=== PATIENT | male | born 1975 | race Caucasian/White ===

== ENCOUNTER 2021-06-18 16:15 | Inpatient (IN) ==
[2021-06-18] MEDS ORDERED: IOPAMIDOL 100 ML BOTTLE IV ONE (16:16)
[2021-06-18] MEDS ORDERED: 0.9 % SODIUM CHLORIDE 1,000 ML IV ONE (16:28)
--- NOTE | 2021-06-18 16:28 | Emergency Department Note ---
Abdominal Pain HPI General Chief Complaint: Abdominal Pain Stated Complaint: abdominal pain Time Seen by Provider: 06/18/21 16:27 Source: patient Mode of arrival: ambulatory Limitations: no limitations History of Present Illness HPI Narrative: Narrative: Patient is a 45-year-old male who presents to the emergency department today with report of severe aching pain to his abdomen. He reports this is located all 4 quadrants and started 2 days ago. Patient rates the pain 7 out of 10 on the 0-10 numerical pain scale. Patient reports past medical history of hepatitis C and was treated 7 or 8 months ago. He did not follow-up with GI after treatment. He indicates that his father and he started drin trace daily. He has been drinking 3 "4 Tionesta's" a day. 2 days ago he stopped drinking alcohol. He noticed that he started to have the abdominal pain, distention, feeling anxious, sweating, and nauseated. He denies any chest pain, shortness of breath, or difficulty breathing. He has not had any fevers or chills. He denies any cough. He has not had any vomiting, diarrhea, constipation, melena, or hematochezia. He has not had any headache or weakness. Related Data Home Medications Medication Instructions Recorded Confirmed No Known Home Meds 06/18/21 06/18/21 Allergies Allergy/AdvReac Type Severity Reaction Status Date / Time No Known Drug Allergies Allergy Unverified 06/18/21 16:18 Review of Systems ROS ROS Narrative: Narrative: All systems ED: reviewed and negative except as stated. [facility] Narrative Patient History Narrative: Narrative: Medical/Surgical/Family History All Active Problems (Updated 06/18/21 @ 19:48 by CLEOPATRA Diamond) Pancreatitis (Acute) Alcohol withdrawal syndrome (Acute) Social History Smoking Status: Current every day smoker Alcohol Intake Frequency: 2+ drinks per day Exam Narrative Narrative: Narrative: General Limitations: no limitations General appearance: Present alert and anxious Eye Eye: Present normal appearance and PERRL; Absent scleral icterus or nystagmus ENT ENT: Present mucous membranes dry Neck Neck: Present full ROM; Absent lymphadenopathy Chest Chest: Present normal inspection and symmetric chest wall rise Respiratory Respiratory: Present normal lung sounds bilaterally; Absent respiratory distress, rales/crackles, wheezes or accessory muscle use Cardiovascular Cardiovascular: Present regular rate and normal rhythm Adbominal Abdominal: Present soft, distention, tenderness (All 4 quadrants have mild to moderate tenderness with palpation.) and ascites; Absent mass, pulsatile mass or hernia Extremities Extremities: Present full ROM and normal capillary refill; Absent pedal edema, pretibial edema or calf tenderness Neurological Neurological: Present alert, oriented X3 and CN II-XII intact Psychiatric Psychiatric: Present anxious; Absent homicidal ideation or suicidal ideation Skin Skin: Present warm (WNL), diaphoretic and normal color Course Vital Signs Vital signs: Vital Signs Temperature 96.9 F L 06/18/21 16:19 Pulse Rate 122 H 06/18/21 16:19 Respiratory Rate 18 06/18/21 16:19 Blood Pressure 135/93 06/18/21 16:19 Pulse Oximetry (%) 96 06/18/21 16:19 Temperature 98.8 F 06/19/21 08:40 Pulse Rate 143 H 06/19/21 14:56 Respiratory Rate 28 H 06/19/21 14:01 Blood Pressure 125/96 06/19/21 14:01 Pulse Oximetry (%) 93 06/19/21 14:01 [facility] Narrative Medical decision making narrative: Narrative: 45-year-old male who presents to the emergency department today with abdominal distention and abdominal pain. He has history of hepatitis C with treatment and has been drinking alcohol daily for the last 7 to 8 months. He recently stopped drinking 2 days ago and is in alcohol withdrawal syndrome today. His CIWA score upon arrival was 15. Proceeded with IV lorazepam, IV fluids for hydration, CBC, CMP, lipase, troponin,urine dipstick, abdominal and pelvis CT scan with contrast. Patient's EKG today sinus tachycardia with rate of 120. No sign of acute coronary syndrome on EKG. Patient required IV Dilaudid for pain management today. His pain was starting to subside and controlled with IV pain medication. CT scan was read by Dr. Garcia today and he called me with report indicating that patient has acute uncomplicated pancreatitis. Lipase level today elevated at 610. Patient's bilirubin level elevated at 2.2, AST 136, ALT 97, alkaline phos 121, white blood count today 13.3. [id number] troponin today is negative. I discussed this case with supervising physician today, Dr. Conway. We will proceed with a right upper quadrant abdominal ultrasound for further evaluation for potential cholecystitis. The abdominal ultrasound does not show any sign of cholecystitis. No stones seen. Common bile duct is 4 mm. Patient responded well with IV lorazepam for alcohol withdrawal as well is receiving Dilaudid for pain management. Given that patient has alcohol withdrawal syndrome, acute pancreatitis requiring pain management with IV pain medication I feel that the patient would be best managed by being hospitalized. I was able to speak with Dr. Monroe today who is on for the hospitalist at [facility]. He agrees to accept patient for hospital admission. Lab Data Lab results reviewed: Yes I reviewed the patient's lab results. Result diagrams: 06/19/21 05:27 06/19/21 11:35 Labs: Lab Results 06/18/21 06/18/21 06/18/21 Range/Units 16:38 16:38 16:38 WBC 13.3 H (4.5-11.0) K/mcL RBC 5.99 (4.63-6.08) M/mcL Hgb 19.5 H (13.7-17.5) g/dL Hct 56.6 H (40.1-51.0) % MCV 94.5 (80.0-100.0) fL MCH 32.6 (26.0-34.0) pg MCHC 34.5 (31.0-36.0) g/dL RDW 12.5 (11.5-14.5) % Plt Count 367 (140-440) K/mcL MPV 9.1 (7.4-10.4) fL Neut % (Auto) 81.6 H (38.0-78.0) % Lymph % (Auto) 10.2 L (15.5-49.0) % [place] % (Auto) 7.1 (1.0-12.0) % Eos % (Auto) 0.2 (0.0-7.0) % Baso % (Auto) 0.9 (0.0-2.0) % Lymph # (Auto) 1.36 L (1.50-4.80) K/mcL [place] # (Auto) 0.95 H (0.10-0.90) K/mcL Eos # (Auto) 0.02 (0.00-0.70) K/mcL Baso # (Auto) 0.12 (0.00-0.30) K/mcL Absolute Neutrophils 10.87 H (1.80-8.00) K/mcL PT 12.9 (11.9-14.5) sec INR 0.9 (0.9-1.1) Sodium 134 (133-145) mmol/L Potassium 3.8 (3.3-5.1) mmol/L Chloride 94 L (96-108) mmol/L Carbon Dioxide 27 (22-30) mmol/L Anion Gap 13.0 (8.0-16.0) BUN 12 (6-20) mg/dL Creatinine 1.1 (0.7-1.2) mg/dL POC Creatinine (0.6-1.2) GFR Calculation 80 Glucose 186 H (70-105) mg/dL Calcium 9.4 (8.6-10.4) mg/dL Total Bilirubin 2.2 H (0.1-1.0) mg/dL AST 136 H (<40) U/L ALT 97 H (<40) U/L Alkaline Phosphatase 121 H (39-117) U/L C-Reactive Protein (0.03-0.80) mg/dL Total Protein 7.3 (5.9-8.4) gm/dL Albumin 3.8 (3.2-5.2) gm/dL Globulin 3.5 (2.2-3.7) gm/dL Albumin/Globulin Ratio 1.1 (1.0-2.3) Lipase 610 H (7-60) U/L POC Troponin I 06/18/21 06/18/21 06/18/21 Range/Units 16:38 17:17 17:19 WBC (4.5-11.0) K/mcL RBC (4.63-6.08) M/mcL Hgb (13.7-17.5) g/dL Hct (40.1-51.0) % MCV (80.0-100.0) fL MCH (26.0-34.0) pg MCHC (31.0-36.0) g/dL RDW (11.5-14.5) % Plt Count (140-440) K/mcL MPV (7.4-10.4) fL Neut % (Auto) (38.0-78.0) % Lymph % (Auto) (15.5-49.0) % [place] % (Auto) (1.0-12.0) % Eos % (Auto) (0.0-7.0) % Baso % (Auto) (0.0-2.0) % Lymph # (Auto) (1.50-4.80) K/mcL [place] # (Auto) (0.10-0.90) K/mcL Eos # (Auto) (0.00-0.70) K/mcL Baso # (Auto) (0.00-0.30) K/mcL Absolute Neutrophils (1.80-8.00) K/mcL PT (11.9-14.5) sec INR (0.9-1.1) Sodium (133-145) mmol/L Potassium (3.3-5.1) mmol/L Chloride (96-108) mmol/L Carbon Dioxide (22-30) mmol/L Anion Gap (8.0-16.0) BUN (6-20) mg/dL Creatinine (0.7-1.2) mg/dL POC Creatinine 1.2 (0.6-1.2) GFR Calculation Glucose (70-105) mg/dL Calcium (8.6-10.4) mg/dL Total Bilirubin (0.1-1.0) mg/dL AST (<40) U/L ALT (<40) U/L Alkaline Phosphatase (39-117) U/L C-Reactive Protein 0.50 (0.03-0.80) mg/dL Total Protein (5.9-8.4) gm/dL Albumin (3.2-5.2) gm/dL Globulin (2.2-3.7) gm/dL Albumin/Globulin Ratio (1.0-2.3) Lipase (7-60) U/L POC Troponin I 0 ED POC Tests ED POC Tests: MACIE - SARS Antigen Negative EKG Data EKG #1: EKG attestation: Yes I reviewed and interpreted this EKG. and Yes There are no EKG findings of acute coronary syndrome EKG shows normal: sinus rhythm Rate: tachycardia Discharge Plan Patient/Caregiver Discharge Instructions Pt seen by POWER SCREWDRIVER OPERATOR/PA only: No Clinical Impression: Pancreatitis, Alcohol withdrawal syndrome Patient Disposition: Xfer As Inpt ([facility]) Discharge Date/Time: 06/18/21 20:39
[2021-06-18] MEDS ORDERED: LORazepam 2 MG/ML VIAL IV ONE (16:38)
[2021-06-18] MEDS: HYDROmorphone 0.5 MG/0.5 ML SYRINGE IV PRN ×4 (16:50→23:26)
[2021-06-18 17:18] LABS: Basophils # (Auto) 0.12 K/mcL (0.00-0.30); Basophils % (Auto) 0.9 % (0.0-2.0); Eosinophils # (Auto) 0.02 K/mcL (0.00-0.70); Eosinophils % (Auto) 0.2 % (0.0-7.0); Hematocrit 56.6 % (40.1-51.0); Hemoglobin 19.5 g/dL (13.7-17.5); Lymphocytes # (Auto) 1.36 K/mcL (1.50-4.80); Lymphocytes % (Auto) 10.2 % (15.5-49.0); Mean Cell Volume 94.5 fL (80.0-100.0); Mean Corpuscular HGB Conc 34.5 g/dL (31.0-36.0); Mean Platelet Volume 9.1 fL (7.4-10.4); Monocytes # (Auto) 0.95 K/mcL (0.10-0.90); Monocytes % (Auto) 7.1 % (1.0-12.0); Neutrophils % (Auto) 81.6 % (38.0-78.0); Platelet Count 367 K/mcL (140-440); RBC 5.99 M/mcL (4.63-6.08); Red Cell Distribution Width 12.5 % (11.5-14.5); WBC 13.3 K/mcL (4.5-11.0)
[2021-06-18 17:30] LABS: ALT/SGPT 97 U/L (<40); AST/SGOT 136 U/L (<40); Albumin 3.8 gm/dL (3.2-5.2); Albumin/Globulin Ratio 1.1 (1.0-2.3); Alkaline Phosphatase 121 U/L (39-117); Bilirubin,Total 2.2 mg/dL (0.1-1.0); Blood Urea Nitrogen 12 mg/dL (6-20); Calcium 9.4 mg/dL (8.6-10.4); Carbon Dioxide 27 mmol/L (22-30); Chloride 94 mmol/L (96-108); Globulin 3.5 gm/dL (2.2-3.7); Glomerular Filtration Rate 80; Glucose 186 mg/dL (70-105)
[2021-06-18] MEDS ORDERED: LACTATED RINGERS 1,000 ML IV ONE (19:51)
--- NOTE | 2021-06-18 19:58 | Internal Med History&Physical ---
HPI History of Present Illness Patient information: Note initiated : 06/18/21 at 7:57 pm Service Date, if different from initiated Date: [] Patient: Deanne Alvarez 45 y/o M admitted on for abdominal pain. Chief Complaint: [] History of present illness: Mr. Alvarez is a 45 year old male with a history of alcohol use disorder, tobacco use disorder, treated chronic hepatitis C who presented to the emergency department with abdominal pain and distention and was found to have acute pancreatitis. CT abdomen pelvis as well as abdominal ultrasound were done in the ED, the ED provider received report from radiology that there was evidence of acute uncomplicated pancreatitis, there were no gallstones seen on imaging the common bile duct was 4 mm. The likely reason for the patient's acute pancreatitis is alcohol. In addition, the patient was experiencing alcohol withdrawal in the emergency department and received Ativan IV. Hospital medicine was consulted for admission. We discussed the plan of care in detail as well as CODE STATUS. All questions answered to best my ability. The patient wishes to be full code. Review of system Constitutional: no fever, fatigue, or weight loss Eyes: no vision changes or pain Cardiovascular: no chest pain, no palpitations Respiratory: no cough or dyspnea Gastrointestinal: Positive for abdominal pain and distention. Genitourinary: no dysuria or difficulty voiding Musculoskeletal: no arthralgia or myalgia Integumentary: no skin lesion or wound Neurological: no focal weakness or numbness Psychiatric: Positive for depression. Physical exam Head: Atraumatic, normal inspection. Eyes: normal appearance, no scleral icterus. Neck: full ROM Respiratory: no respiratory distress. Cardiovascular: Regular tachycardia, S1, S2. GI/Abdominal: Abdominal distended, diffuse abdominal tenderness to palpation. Neurological: CN II-XII intact, intact motor, intact sensation. Psychiatric: Appears anxious. Skin: warm, normal color PFSH PFSH All Active Problems (Updated 06/18/21 @ 19:48 by CLEOPATRA Diamond) Pancreatitis (Acute) Alcohol withdrawal syndrome (Acute) Social History alcohol intake frequency: 2+ drinks per day MEDS/ALLERGIES Home Medications and Allergies Home Medications Medication Instructions Recorded Confirmed Type No Known Home Meds 06/18/21 06/18/21 History Allergies Allergy/AdvReac Type Severity Reaction Status Date / Time No Known Drug Allergies Allergy Unverified 04/23/22 16:18 EXAM Constitutional Vitals: Temp Pulse Resp BP Pulse Ox 96.9 F L 118 H 16 170/118 97 06/18/21 16:19 06/18/21 19:00 06/18/21 18:46 06/18/21 19:31 06/18/21 19:00 DATA Data Completed and Pending Labs: Labs from last 24 hours 06/18/21 06/18/21 06/18/21 17:19 17:17 16:38 WBC RBC Hgb Hct MCV MCH MCHC RDW Plt Count MPV Neut % (Auto) Lymph % (Auto) [place] % (Auto) Eos % (Auto) Baso % (Auto) Lymph # (Auto) [place] # (Auto) Eos # (Auto) Baso # (Auto) Absolute Neutrophils PT INR Sodium Potassium Chloride Carbon Dioxide Anion Gap BUN Creatinine POC Creatinine 1.2 GFR Calculation Glucose Calcium Total Bilirubin AST ALT Alkaline Phosphatase C-Reactive Protein Pending Total Protein Albumin Globulin Albumin/Globulin Ratio Lipase POC Troponin I 0 06/18/21 06/18/21 06/18/21 16:38 16:38 16:38 WBC 13.3 H RBC 5.99 Hgb 19.5 H Hct 56.6 H MCV 94.5 MCH 32.6 MCHC 34.5 RDW 12.5 Plt Count 367 MPV 9.1 Neut % (Auto) 81.6 H Lymph % (Auto) 10.2 L [place] % (Auto) 7.1 Eos % (Auto) 0.2 Baso % (Auto) 0.9 Lymph # (Auto) 1.36 L [place] # (Auto) 0.95 H Eos # (Auto) 0.02 Baso # (Auto) 0.12 Absolute Neutrophils 10.87 H PT Pending INR Pending Sodium 134 Potassium 3.8 Chloride 94 L Carbon Dioxide 27 Anion Gap 13.0 BUN 12 Creatinine 1.1 POC Creatinine GFR Calculation 80 Glucose 186 H Calcium 9.4 Total Bilirubin 2.2 H AST 136 H ALT 97 H Alkaline Phosphatase 121 H C-Reactive Protein Total Protein 7.3 Albumin 3.8 Globulin 3.5 Albumin/Globulin Ratio 1.1 Lipase 610 H POC Troponin I A/P Narrative A/P Narrative: Assessment: 45 year old male with a history of alcohol use disorder and chronic hepatitis C (reportedly treated) admitted for acute pancreatitis secondary to alcohol and alcohol withdrawal. #Acute pancreatitis likely secondary to alcohol #Alcohol withdrawal #Elevated hematocrit secondary to hemoconcentration #Leukocytosis likely due to stress #Alcoholic hepatitis #Obesity BMI 35 #Alcohol use disorder #Tobacco use disorder #History of chronic hepatitis C (reportedly treated) Plan -Aggressive volume resuscitation with IV LR, monitor volume status. -Analgesics as needed with Tylenol, Toradol, Oxycodone, Dilaudid IV. -Check INR to calculate Maddrey's Discriminant Function score. -Check CRP. -Follow CBC and inpatient panel. -Replace electrolytes as needed. -Follow up pending abdominal ultrasound and CT scan report. -Urine drug screen. -CIWA protocol with Ativan IV prn. -Vitamin supplementation. -Seizure precautions. -Labetalol or hydralazine IV as needed for SBP greater than 90. -Clear liquid diet, advance as tolerated. -Monitor nutritional status, if no oral intake after 48-72 hour of hospitalization consider starting tube feeding. -DVT prophylaxis: Lovenox -Code status: Full -Disposition: home when stable, consider referral to addition medicine. Time Spent With Patient Time: Total time spent is greater than 50% in coordination of care (as documented) at patient's floor/unit and/or counseling patient:
[2021-06-18 20:19] LABS: INR 0.9 (0.9-1.1); Prothrombin Time 12.9 sec (11.9-14.5)
[2021-06-18] MEDS ORDERED: ACETAMINOPHEN 325 MG TABLET PO PRN ×2 (20:48→21:28)
[2021-06-18] MEDS ORDERED: LACTULOSE 20 GM/30 ML ORAL.SOL PO PRN (20:48)
[2021-06-18] MEDS ORDERED: oxyCODONE/APAP 5/325MG TABLET PO PRN (20:48)
[2021-06-18] MEDS ORDERED: POTASSIUM CHLORIDE 20 MEQ TABLET PO SCH (20:48)
[2021-06-18] MEDS ORDERED: SENNOSIDES 1 TABLET PO PRN (20:48)
[2021-06-18] MEDS ORDERED: ONDANSETRON 4 MG/2 ML VIAL IV PRN (20:48)
[2021-06-18] MEDS: LACTATED RINGERS 1,000 ML IV SCH (21:12)
[2021-06-18] MEDS ORDERED: NICOTINE POLACRILEX 2 MG GUM CHEW/PARK PRN (21:19)
[2021-06-18] MEDS ORDERED: LABETALOL 5 MG/ML ML IV PRN (21:23)
[2021-06-18] MEDS ORDERED: hydrALAZINE 20 MG/ML VIAL IV PRN (21:23)
[2021-06-18] MEDS ORDERED: oxyCODONE HCL 5 MG TABLET PO PRN (21:27)
[2021-06-18] MEDS: LORazepam 2 MG/ML VIAL IV PRN (21:46)
[2021-06-18] MEDS: 0.9 % SODIUM CHLORIDE 10 ML SYRINGE IV SCH ×2 (21:49)
[2021-06-18] MEDS: KETOROLAC 15 MG/ML VIAL IV SCH (23:25)
[2021-06-19] MEDS: LACTATED RINGERS 1,000 ML IV SCH ×5 (01:28→22:24)
[2021-06-19] MEDS: LORazepam 2 MG/ML VIAL IV PRN ×9 (02:53→22:42)
[2021-06-19] MEDS: HYDROmorphone 0.5 MG/0.5 ML SYRINGE IV PRN ×3 (02:54→13:46)
--- NOTE | 2021-06-19 04:03 | Ultrasound Report ---
CLINICAL INFORMATION: COMPARISON: None. FINDINGS: Liver is moderately enlarged with a vertical measured 22 cm at mid clavicular line. Echotexture is heterogeneous and elevated compatible with fatty change or other diffuse hepatocellular process. No focal hepatic lesions. Gallbladder and bile ducts are normal. CBD is 3 mm. Pancreas not visualized. No free fluid. IMPRESSION: Moderate hepatomegaly with inhomogeneous echotexture compatible with fatty change or other diffuse hepatocellular process. Gallbladder and bile ducts are normal. Pancreas not visualized. Interpreted and Authenticated by: Marlon Garcia 06/19/21
--- NOTE | 2021-06-19 04:19 | Cat Scan Report ---
CLINICAL INFORMATION: Abdominal pain. COMPARISON: None. TECHNIQUE: Following enteric contrast, 80 cc of Isovue-370 were injected intravenously, and 60 seconds later, 0.625 mm helical slices were obtained from the mid heart through the subtrochanteric regions. Following reconstruction, 2.5 mm sagittal, coronal and axial reformatted images were processed and reviewed at bone, lung and soft tissue windows. Five minutes later, 0.625 mm helical slices were obtained from the mid heart through the kidneys and viewed at soft tissue windows.The exam was performed using radiation dose optimization techniques including, but not limited to, automated exposure control, adjustment of the mA and/or kV according to patient size and use of iterative reconstruction technique. FINDINGS: The lung bases show minor subsegmental atelectasis.. No effusions. The visualized heart is grossly normal. Abdominal images show moderate hepatomegaly with a vertical dimension of the liver 22 cm at mid clavicular line. Severe diffuse fatty changes noted. No focal hepatic lesions. The gallbladder and bile ducts are normal: The CBD is 5 mm. The pancreas is diffusely enlarged with inhomogeneous low-attenuation particularly within the neck and head region. There is also moderate peripancreatic fluid. Findings are compatible with acute interstitial pancreatitis. There is no necrosis, abscess or other complication. Both kidneys, adrenal glands, spleen and aorta, including aortic branches, are normal in size configuration and attenuation without focal lesion. There is no free air or adenopathy. Pelvic images show prostate, seminal vesicles and urinary bladder are normal. A 12 mm calcification in the left pericolonic fat distal sigmoid is likely stigmata of remote epiploic appendicitis. The large bowel, appendix, small bowel stomach are unremarkable. Tiny periumbilical hernia contains only fat. Bone windows show no osseous abnormality. IMPRESSION: 1. Moderate acute interstitial pancreatitis. No complication. 2. Moderate hepatomegaly with severe diffuse fatty change Interpreted and Authenticated by: Marlon Garcia 06/19/21
[2021-06-19] MEDS ORDERED: NALOXONE HCL 0.4 MG/ML VIAL IV PRN (05:04)
[2021-06-19] MEDS ORDERED: DEXMEDETOMIDINE 100 ML IV ONE ×2 (05:13→21:43)
[2021-06-19] MEDS ORDERED: LORazepam 2 MG/ML VIAL IV SCH (05:15)
[2021-06-19] MEDS ORDERED: DEXMEDETOMIDINE 400 MCG in PREMIX 1 BAG IV PRN (05:15)
[2021-06-19] MEDS: 0.9 % SODIUM CHLORIDE 10 ML SYRINGE IV SCH ×6 (05:28→22:25)
[2021-06-19] MEDS: KETOROLAC 15 MG/ML VIAL IV SCH (05:54)
[2021-06-19 06:24] LABS: Amphetamine Screen,Urine Suspect positive; Barbiturate Screen,Urine None detected; Benzodiazepines Screen,Urine None detected; Cannabinoid Screen,Urine None detected; Cocaine Screen,Urine None detected; Opiate Screen,Urine Suspect Positive; Oxycodone, Urine Screen None detected; Phencyclidine Screen,Urine None detected
[2021-06-19 06:24] LABS: Basophils # (Auto) 0.07 K/mcL (0.00-0.30); Basophils % (Auto) 0.4 % (0.0-2.0); Eosinophils # (Auto) 0 K/mcL (0.00-0.70); Eosinophils % (Auto) 0 % (0.0-7.0); Hematocrit 62.2 % (40.1-51.0); Hemoglobin 20.9 g/dL (13.7-17.5); Lymphocytes # (Auto) 0.82 K/mcL (1.50-4.80); Lymphocytes % (Auto) 4.8 % (15.5-49.0); Mean Cell Volume 99.7 fL (80.0-100.0); Mean Corpuscular HGB Conc 33.6 g/dL (31.0-36.0); Mean Platelet Volume 9.4 fL (7.4-10.4); Monocytes # (Auto) 1.18 K/mcL (0.10-0.90); Neutrophils % (Auto) 87.8 % (38.0-78.0); Platelet Count 283 K/mcL (140-440); RBC 6.24 M/mcL (4.63-6.08); Red Cell Distribution Width 12.7 % (11.5-14.5)
[2021-06-19 06:25] LABS: ALT/SGPT 67 U/L (<40); AST/SGOT 107 U/L (<40); Albumin 3.2 gm/dL (3.2-5.2); Albumin/Globulin Ratio 0.9 (1.0-2.3); Alkaline Phosphatase 119 U/L (39-117); Bilirubin,Direct 0.8 mg/dL (<0.3); Bilirubin,Total 2.2 mg/dL (0.1-1.0); Blood Urea Nitrogen 18 mg/dL (6-20); Calcium 9.1 mg/dL (8.6-10.4); Carbon Dioxide 15 mmol/L (22-30); Chloride 92 mmol/L (96-108); Globulin 3.7 gm/dL (2.2-3.7); Glomerular Filtration Rate 37; Glucose 267 mg/dL (70-105); Lactate Dehydrogenase 459 U/L (135-225); Phosphorous 6.3 mg/dL (2.5-4.5); Triglycerides 328 mg/dL (<150); Uric Acid 5.1 mg/dL (2.5-8.0)
[2021-06-19] MEDS ORDERED: LACTATED RINGERS 1,000 ML IV ONE ×3 (07:29→09:35)
[2021-06-19] MEDS ORDERED: DEXTROSE 31 GM ORAL.SUSP PO PRN (07:52)
[2021-06-19] MEDS ORDERED: DEXTROSE 50% 50 ML VIAL IV PRN (07:52)
[2021-06-19] MEDS ORDERED: ENOXAPARIN 40 MG/0.4 ML SYRINGE SQ SCH (09:00)
[2021-06-19] MEDS: FOLIC ACID 1 MG TABLET PO SCH (09:20)
[2021-06-19] MEDS: THIAMINE 100 MG in 0.9 % SODIUM CHLORIDE 50 ML IV SCH (09:20)
[2021-06-19] MEDS: NICOTINE 14 MG PATCH TOPICAL SCH (10:13)
--- NOTE | 2021-06-19 10:36 | Internal Med Progress Note ---
SUBJECTIVE Subjective Patient information: Note initiated : 06/19/21 at 10:29 am Service Date, if different from initiated Date: [] Patient: Deanne Alvarez 45 y/o M admitted on 06/18/21 for abdominal pain. Chief Complaint: [] Interval history: Mr. Alvarez is a 45 year old male with a history of alcohol use disorder, tobacco use disorder, treated chronic hepatitis C who presented to the emergency department with abdominal pain and distention and was found to have acute pancreatitis. CT abdomen pelvis as well as abdominal ultrasound were done in the ED, the ED provider received report from radiology that there was evidence of acute uncomplicated pancreatitis, there were no gallstones seen on imaging the common bile duct was 4 mm. The likely reason for the patient's acute pancreatitis is alcohol. In addition, the patient was experiencing alcohol withdrawal in the emergency department and received Ativan IV. Hospital medicine was consulted for admission. We discussed the plan of care in detail as well as CODE STATUS. All questions answered to best my ability. The patient wishes to be full code. 06/19 The patient continues to receive aggressive IV fluid hydration, lactic acid was 3.4 this morning therefore the patient received more IV fluid boluses in addition to continuing LR at 250 mL/h. Repeating lactic acid in a couple hours. Tachycardia improving, patient has received about 7 L of IV fluid since admission. Unfortunately, the patient has developed an oliguric acute kidney injury. Suspect this is due to acute tubular necrosis secondary to prerenal physiology secondary to acute pancreatitis. The patient also received IV IV contrast for the CT scan when he presented to the ED and that can also be a cause of acute tubular necrosis. CIWA scores have been elevated, the patient was on a Precedex infusion briefly overnight however that was discontinued this morning. Continues to receive IV Ativan per CIWA score. LFTs are downtrending. Patient does have a oxygen requirement of 2 L/min today. Chest x-ray ordered, lungs appear clear per my read awaiting radiology interpretation. Physical exam Head: Atraumatic, normal inspection. Eyes: normal appearance, no scleral icterus. Neck: full ROM Respiratory: Nasal cannula oxygen, respiratory rate in low 20s, no respiratory distress. Cardiovascular: Regular tachycardia, S1, S2. GI/Abdominal: Abdominal distended, diffuse abdominal tenderness to palpation. Neurological: CN II-XII intact, intact motor, intact sensation. Psychiatric: Appears anxious, mildly confused. Skin: warm, normal color Constitutional Vitals: Vital Signs Temp Pulse Resp BP Pulse Ox 98.8 F 124 H 21 110/73 93 06/19/21 08:40 06/19/21 10:02 06/19/21 10:02 06/19/21 10:02 06/19/21 10:02 Period Temp Pulse Resp BP Sys/Mojica Pulse Ox Last 24 Hr 96.9 F-98.8 F 47-161 16-29 102-183/55-142 88-98 Intake and Output 06/18/21 06/19/21 06/19/21 21:59 05:59 13:59 Intake Total 1873 2460 2604 Output Total 180 50 Balance 1693 2410 2604 Weight 103.958 kg Intake & Output: Intake & Output 06/18/21 06/19/21 06/19/21 21:59 05:59 13:59 Intake Total 1873 2460 2604 Output Total 180 50 Balance 1693 2410 2604 Weight 103.958 kg Intake: IV 1533 2000 2604 Sodium Chloride 0.9% 1,000 ml @ 1000 Wide Open IV BOLUS ONE Rx#: [id number] Precedex 400 Mcg/100 ml 45 Dextrose 400 Mcg In Premix 1 Bag @ 0.2 MCG/KG/HR 5.198 mls/ hr IV .[id number] PRN Rx#: [id number] Lactated Ringers 1,000 ml @ 533 2000 2508 Wide Open IV BOLUS ONE Rx#: [id number] Vitamin B1 100 mg In Sodium 51 Chloride 0.9% 50 ml @ 50 mls/hr IV DAILY [facility] Rx#:[id number] Oral 340 460 Output: Void Amount 180 50 Other: Urine Appearance Clear Urine Color Tea Colored Tea Colored [place] OBJ DATA Labs CBC & Chem 7: 06/19/21 05:27 06/19/21 05:26 Labs: Abnormal Lab Results 06/19/21 06/19/21 06/19/21 09:15 05:27 05:26 WBC 17.0 H RBC 6.24 H Hgb 20.9 H Hct 62.2 H Neut % (Auto) 87.8 H Lymph % (Auto) 4.8 L Lymph # (Auto) 0.82 L Mckinley # (Auto) 1.18 H Absolute Neutrophils 14.88 H VBG Lactic Acid 3.4 H Sodium 123 L Chloride 92 L Carbon Dioxide 15 L Creatinine 2.1 H Glucose 267 H Phosphorus 6.3 H* Total Bilirubin 2.2 H Direct Bilirubin 0.8 H GGT 480 H AST 107 H ALT 67 H Alkaline Phosphatase 119 H Lactate Dehydrogenase 459 H Albumin/Globulin Ratio 0.9 L Triglycerides 328 H Lipase Urine Opiates Screen Ur Amphetamines Screen 06/19/21 06/18/21 06/18/21 04:05 16:38 16:38 WBC 13.3 H RBC Hgb 19.5 H Hct 56.6 H Neut % (Auto) 81.6 H Lymph % (Auto) 10.2 L Lymph # (Auto) 1.36 L Mckinley # (Auto) 0.95 H Absolute Neutrophils 10.87 H VBG Lactic Acid Sodium Chloride 94 L Carbon Dioxide Creatinine Glucose 186 H Phosphorus Total Bilirubin 2.2 H Direct Bilirubin GGT AST 136 H ALT 97 H Alkaline Phosphatase 121 H Lactate Dehydrogenase Albumin/Globulin Ratio Triglycerides Lipase 610 H Urine Opiates Screen Suspect positive A Ur Amphetamines Screen Suspect positive A Meds: Medications Acetaminophen (Acetaminophen 325 Mg Tablet) 325 mg PO Q6HP PRN; Protocol PRN Reason: Per Pain Protocol/Fever > 101 Dextrose (Dextrose 50% 50 Ml Vial) 0 ml IV UD PRN PRN Reason: Per Sliding Scale Diagnostic Test (Pha) (Accu-Chek 1 Each Strip) 1 each FS ACHS [facility] Folic Acid (Folic Acid 1 Mg Tablet) 1 mg PO DAILY [facility] Last Admin: 06/19/21 09:20 Dose: 1 mg Documented by: Glucose (Dextrose 31 Gm Oral.Susp) 15 gm PO PRN PRN PRN Reason: Hypoglycemia Heparin Sodium (Porcine) (Heparin 5,000 Unit/Ml Vial) 5,000 unit SQ Q8 [facility] Hydralazine HCl (Hydralazine 20 Mg/Ml Vial) 10 mg IV Q4-6HP PRN PRN Reason: Hypertension Hydromorphone HCl (Hydromorphone 0.5 Mg/0.5 Ml Syringe) 0.5 mg IV Q2HP PRN; Pr otocol PRN Reason: Per Pain Protocol Last Admin: 06/19/21 02:54 Dose: 0.5 mg Documented by: Lactated Ringer's (Lactated Ringers) 1,000 mls @ 250 mls/hr IV .Q4H [facility] Last Infusion: 06/19/21 07:30 Dose: 0 mls/hr Documented by: Thiamine HCl 100 mg/ Sodium (Chloride) 51 mls @ 50 mls/hr IV DAILY [facility] Last Infusion: 06/19/21 10:21 Dose: Infused Documented by: Insulin Human Lispro (Insulin Lispro 1 Unit/0.01 Ml Unit) 0 unit SQ ACHS [facility]; Protocol Labetalol HCl (Labetalol 5 Mg/Ml Ml) 10 mg IV Q10M PRN PRN Reason: Blood Pressure - High Lactulose (Lactulose 20 Gm/30 Ml Oral.Jayna) 10 gm PO DAILYP PRN PRN Reason: Constipation Lorazepam (Lorazepam 2 Mg/Ml Vial) 0 mg IV Q4HP PRN; Protocol PRN Reason: Alcohol Withdrawal Last Admin: 06/19/21 09:31 Dose: 2 mg Documented by: Naloxone HCl (Naloxone Hcl 0.4 Mg/Ml Vial) 0.4 mg IV Q10M PRN PRN Reason: Opiate Reversal Nicotine (Nicotine 14 Mg Patch) 14 mg TOPICAL DAILY@1000 [facility] Last Admin: 06/19/21 10:13 Dose: 14 mg Documented by: Nicotine Polacrilex (Nicotine Polacrilex 2 Mg Gum) 2 mg CHEW/PARK Q4HP PRN PRN Reason: nicotine withdrawal Ondansetron HCl (Ondansetron 4 Mg/2 Ml Vial) 4 mg IV Q4HP PRN; Protocol PRN Reason: Nausea And Vomiting Last Admin: 06/19/21 07:35 Dose: 4 mg Documented by: Oxycodone HCl (Oxycodone Hcl 5 Mg Tablet) 5 mg PO Q4HP PRN; Protocol PRN Reason: Per Pain Protocol Senna (Sennosides 1 Tablet) 2 tab PO HSP PRN PRN Reason: Constipation Sodium Chloride (0.9 % Sodium Chloride 10 Ml Syringe) 10 ml IV Q8 [facility] Last Admin: 06/19/21 05:28 Dose: Not Given Documented by: Sodium Chloride (0.9 % Sodium Chloride 10 Ml Syringe) 10 ml IV Q8 [facility] Last Admin: 06/19/21 05:28 Dose: Not Given Documented by: A/P Narrative A/P Narrative: Assessment: 45 year old male with a history of polysubstance use disorder including alcohol use disorder, amphetamines, and tobacco, obesity, chronic hepatitis C (reportedly treated) admitted for acute pancreatitis secondary to alcohol and alcohol withdrawal. Acute pancreatitis was complicated by acute kidney injury. #Moderate to severe acute pancreatitis likely secondary to alcohol -Patient has been drinking heavily for months. -CT abdomen pelvis, ultrasound abdomen did not show evidence of gallstones. -Triglycerides less than 1000. #Oliguric acute kidney injury -Suspect acute tubular necrosis secondary to prerenal physiology related to third spacing due to acute pancreatitis -No evidence of obstructive uropathy on CT abdomen pelvis. #Hypoxia, increased risk for ARDS due to acute pancreatitis #Lactic acidosis likely secondary to acute pancreatitis #Alcohol withdrawal #Hyponatremia #Hyperglycemia secondary to stress and acute pancreatitis #Elevated hematocrit secondary to hemoconcentration #Leukocytosis likely due to stress #Alcoholic hepatitis, improving #Alcohol use disorder #Tobacco use disorder #Amphetamine use disorder #History of chronic hepatitis C (reportedly treated) #Obesity BMI 35 #Possible obstructive sleep apnea Plan -Continue aggressive volume resuscitation with IV LR, monitor volume status. -Analgesics as needed with Tylenol, Oxycodone, Dilaudid IV. Narcan IV as needed for opioid reversal. -Check urinalysis for SYDNEY. -Repeat lactic acid until downtrending. -Blood cultures x2. -Check procalcitonin level. -Check hemoglobin A1c. -Follow CBC and inpatient panel. -Replace electrolytes as needed. -Follow-up pending chest x-ray radiology report. -Consider CT abdomen pelvis the patient does not begin to improve in 2 to 3 days. -CIWA protocol with Ativan IV prn. -Vitamin supplementation. -Seizure precautions. -For SYDNEY will avoid nephrotoxic meds, monitor renal function, electrolytes and urine output, if renal function worsens consult nephrology. -Correction Humalog SSIlow. -Labetalol or hydralazine IV as needed for SBP greater than 90. -Clear liquid diet, advance as tolerated. -Monitor nutritional status, if no oral intake after 48-72 hour of hospitalization consider starting tube feeding. -DVT prophylaxis: Lovenox -Code status: Full -Disposition: TBD. Outpatient referral to addiction medicine when discharged. Time Spent With Patient Time: Total time spent is greater than 50% in coordination of care (as documented) at patient's floor/unit and/or counseling patient:
[2021-06-19 11:01] LABS: Hemoglobin A1C 6.8 % Hgb (4.0-6.0)
[2021-06-19] MEDS: INSULIN LISPRO 1 UNIT/0.01 ML UNIT SQ SCH ×2 (11:37→17:04)
[2021-06-19 12:33] LABS: Albumin 2.7 gm/dL (3.2-5.2); Calcium 8.8 mg/dL (8.6-10.4); Phosphorous 5.2 mg/dL (2.5-4.5)
--- NOTE | 2021-06-19 14:04 | XRay Report ---
CLINICAL INFORMATION: Hypoxia COMPARISON: None. TECHNIQUE: Portable FINDINGS: The heart size, mediastinum and pulmonary vessels are unremarkable. Bibasilar subsegmental atelectasis appreciated.. There are no effusions. The bones and soft tissues are within normal limits. IMPRESSION: Mild bibasilar atelectasis. Interpreted and Authenticated by: Marlon Garcia 06/19/21
[2021-06-19] MEDS: HEPARIN 5,000 UNIT/ML VIAL SQ SCH ×2 (14:23→23:03)
[2021-06-19 16:22] LABS: Appearance,Urine CLOUDY (Clear); Bilirubin,Urine Negative (Negative); Color,Urine AMBER; Culture Indicated,Urine No; Glucose,Urine (UA) Negative (Negative); Ketones,Urine Negative (Negative); Leukocyte Esterase,Urine Negative /uL (Negative); Mucus,Urine FEW /hpf; Nitrate,Urine Negative (Negative); Protein,Urine Negative (Negative); Specific Gravity,Urine 1.009 (1.000-1.035); Urine Blood 0.03 mg/dL (Negative); Urine Hyaline Cast 4 /lph (0-2); Urine RBC < 1 /hpf (0-3); Urine Squamous Epithelial Cell < 1 /hpf (0-4); Urine WBC 1 /hpf (0-4); Urobilinogen,Urine Negative
[2021-06-19] MEDS ORDERED: LEVOFLOXACIN 750 MG/150 ML BAG IV SCH (16:30)
[2021-06-19] MEDS: metroNIDAZOLE 500 MG in PREMIX 1 BAG IV SCH (17:25)
[2021-06-19] MEDS ORDERED: metroNIDAZOLE 500 MG/100 ML BAG IV ONE (17:32)
--- NOTE | 2021-06-19 18:30 | XRay Report ---
CLINICAL INFORMATION: Hypoxia COMPARISON: 06/19/2021 TECHNIQUE: Portable FINDINGS: The heart size, mediastinum and pulmonary vessels are unremarkable. Minor bibasilar atelectasis improved.. There are no effusions. The bones and soft tissues are within normal limits. IMPRESSION: Improving minor bibasilar atelectasis. Note: If the patient is truly hypoxic on room air with a negative chest x-ray, please consider the possibility of pulmonary embolus. Acute interstitial pancreatitis may predispose to thrombosis Interpreted and Authenticated by: Marlon Garcia 06/19/21
[2021-06-19 18:33] LABS: proBNP 404.2 pg/mL (<125.0)
[2021-06-19] MEDS ORDERED: VANCOMYCIN PER PHARMACY IV SCH (18:38)
--- NOTE | 2021-06-19 19:56 | Cat Scan Report ---
CLINICAL INFORMATION: Hypoxia COMPARISON: None. TECHNIQUE: 80ml of Isovue-370 were injected intravenously. Using SmartPrep to maximize pulmonary artery opacification, .625mm helical slices were obtained from the lung apices through the lung bases. Following reconstruction, 2.5 mm sagittal, coronal, and axial reformations were processed. The exam was reviewed at mediastinal, lung, and bone windows. The exam was performed using radiation dose optimization techniques including, but not limited to, automated exposure control, adjustment of the mA and/or kV according to patient size and use of iterative reconstruction technique. FINDINGS: Pulmonary parenchymal windows show moderate consolidated infiltrate in the left lower lobe with moderate patchy below infiltrate in the right lower lobe. There are also small patchy infiltrates in the lingula, posterior segment left upper lobe and right middle lobe. Suspect aspiration pneumonia.. Tiny left pleural effusion noted. Mediastinal windows show the heart is grossly normal in size and configuration. The pulmonary arteries are normal diameter and well-opacified without evidence of embolus. Thoracic aorta is also normal diameter and well-opacified. There is no adenopathy in the mediastinal, hilar or axillary regions. Esophagus shows fluid-filled and moderately dilated. The thyroid is unremarkable. Bones and soft tissues the chest wall are normal. IMPRESSION: 1. No evidence of pulmonary embolus. 2. Moderate consolidated infiltrate in the left lower lobe with moderate patchy right lower lobe infiltrate and smaller patchy infiltrates in the lingula, posterior segment left upper lobe and the right middle lobe. Suspect aspiration pneumonia 3. Moderate gastric and esophageal dilatation is ostensibly related to relative duodenal paralysis due to juxtaposition to the acute pancreatitis. Consider NG tube decompression. Interpreted and Authenticated by: Marlon Garcia 06/19/21
[2021-06-19] MEDS ORDERED: IOPAMIDOL 100 ML BOTTLE IV ONE (19:57)
[2021-06-19] MEDS ORDERED: VANCOMYCIN 1,500 MG in 0.9 % SODIUM CHLORIDE 500 ML IV SCH (20:00)
--- NOTE | 2021-06-19 20:02 | Cat Scan Report ---
CLINICAL INFORMATION: Acute pancreatitis COMPARISON: Abdomen and pelvic CT yesterday 06/18/2021 TECHNIQUE: Following enteric contrast, 80 cc of Isovue-370 were injected intravenously, and 60 seconds later, 0.625 mm helical slices were obtained from the mid heart through the subtrochanteric regions. Following reconstruction, 2.5 mm sagittal, coronal and axial reformatted images were processed and reviewed at bone, lung and soft tissue windows. Five minutes later, 0.625 mm helical slices were obtained from the mid heart through the kidneys and viewed at soft tissue windows.The exam was performed using radiation dose optimization techniques including, but not limited to, automated exposure control, adjustment of the mA and/or kV according to patient size and use of iterative reconstruction technique. FINDINGS: Lung bases show moderate consolidated infiltrate in the left lower lobe moderate patchy infiltrate right lower lobe which is increased considerably. Tiny bilateral pleural effusions noted. The heart is mildly enlarged. Abdominal images show moderate hepatomegaly with a vertical dimension of the liver 22 cm at mid clavicular line. Severe diffuse fatty changes noted. No focal hepatic lesions. The gallbladder and bile ducts are normal: The CBD is 5 mm. The pancreas is diffusely enlarged with inhomogeneous low-attenuation particularly within the neck and head region. There is also moderate peripancreatic fluid which is increased from yesterday's exam now extends into the lesser sac and along the paracolic gutters.. Findings are compatible with acute interstitial pancreatitis. There is no necrosis or abscess. Both kidneys, adrenal glands, spleen and aorta, including aortic branches, are normal in size configuration and attenuation without focal lesion. There is no free air or adenopathy. Pelvic images show prostate, seminal vesicles and urinary bladder are normal. A 12 mm calcification in the left pericolonic fat distal sigmoid is likely stigmata of remote epiploic appendicitis. The large bowel, appendix, small bowel stomach are unremarkable. Tiny periumbilical hernia contains only fat. Bone windows show no osseous abnormality. IMPRESSION: 1. Moderate acute interstitial pancreatitis worsening since the exam yesterday with a greater volume of peripancreatic fluid which now extends into the lesser sac perigastric region along the paracolic gutters.. No evidence of necrosis or other complication. 2. Moderate hepatomegaly with severe diffuse fatty change Interpreted and Authenticated by: Marlon Garcia 06/19/21
[2021-06-19] MEDS ORDERED: LACTATED RINGERS 1,000 ML IV SCH ×2 (20:30→21:00)
[2021-06-19] MEDS ORDERED: HALOPERIDOL LACTATE 5 MG/ML VIAL IV PRN (21:27)
[2021-06-19] MEDS: DEXMEDETOMIDINE 400 MCG in PREMIX 1 BAG IV SCH (21:40)
[2021-06-19] MEDS: HALOPERIDOL LACTATE 5 MG/ML VIAL IV PRN (22:39)
[2021-06-19] MEDS ORDERED: HALOPERIDOL LACTATE 5 MG/ML VIAL ONE (22:44)
[2021-06-19] MEDS: FAMOTIDINE/PF 20 MG/2 ML VIAL IV SCH (23:18)
[2021-06-19] MEDS ORDERED: FAMOTIDINE/PF 20 MG/2 ML VIAL IV ONE (23:18)
[2021-06-20] MEDS: LORazepam 2 MG/ML VIAL IV PRN ×3 (00:10→07:29)
[2021-06-20] MEDS: INSULIN LISPRO 1 UNIT/0.01 ML UNIT SQ SCH ×3 (01:03→10:54)
[2021-06-20] MEDS: DEXMEDETOMIDINE 400 MCG in PREMIX 1 BAG IV SCH (01:35)
[2021-06-20] MEDS ORDERED: DEXMEDETOMIDINE 100 ML IV ONE (01:39)
[2021-06-20] MEDS ORDERED: metroNIDAZOLE 500 MG/100 ML BAG IV ONE ×2 (02:28→10:52)
[2021-06-20] MEDS: metroNIDAZOLE 500 MG in PREMIX 1 BAG IV SCH ×2 (02:28→10:46)
[2021-06-20] MEDS ORDERED: HALOPERIDOL LACTATE 5 MG/ML VIAL ONE (03:52)
[2021-06-20] MEDS: HALOPERIDOL LACTATE 5 MG/ML VIAL IV PRN (03:53)
[2021-06-20] MEDS: LACTATED RINGERS 1,000 ML IV SCH ×2 (03:56→10:47)
[2021-06-20] MEDS: 0.9 % SODIUM CHLORIDE 10 ML SYRINGE IV SCH ×2 (05:52)
[2021-06-20] MEDS: HEPARIN 5,000 UNIT/ML VIAL SQ SCH (05:59)
[2021-06-20 06:52] LABS: ALT/SGPT 37 U/L (<40); AST/SGOT 83 U/L (<40); Albumin/Globulin Ratio 0.6 (1.0-2.3); Alkaline Phosphatase 66 U/L (39-117); Basophils # (Auto) 0.02 K/mcL (0.00-0.30); Basophils % (Auto) 0.2 % (0.0-2.0); Bilirubin,Direct 0.8 mg/dL (<0.3); Bilirubin,Total 1.4 mg/dL (0.1-1.0); Blood Urea Nitrogen 34 mg/dL (6-20); Calcium 8.1 mg/dL (8.6-10.4); Carbon Dioxide 20 mmol/L (22-30); Chloride 98 mmol/L (96-108); Eosinophils # (Auto) 0.08 K/mcL (0.00-0.70); Eosinophils % (Auto) 0.9 % (0.0-7.0); Globulin 3.1 gm/dL (2.2-3.7); Glomerular Filtration Rate 25; Glucose 212 mg/dL (70-105); Hematocrit 45.7 % (40.1-51.0); Hemoglobin 15.2 g/dL (13.7-17.5); Lactate Dehydrogenase 623 U/L (135-225); Lymphocytes # (Auto) 0.75 K/mcL (1.50-4.80); Lymphocytes % (Auto) 8.7 % (15.5-49.0); Mean Cell Volume 96.4 fL (80.0-100.0); Mean Corpuscular HGB Conc 33.3 g/dL (31.0-36.0); Mean Platelet Volume 10.9 fL (7.4-10.4); Monocytes # (Auto) 0.95 K/mcL (0.10-0.90); Neutrophils % (Auto) 79.2 % (38.0-78.0); Phosphorous 4.7 mg/dL (2.5-4.5); Platelet Count 171 K/mcL (140-440); RBC 4.74 M/mcL (4.63-6.08); Red Cell Distribution Width 12.5 % (11.5-14.5); Triglycerides 317 mg/dL (<150); Uric Acid 5.7 mg/dL (2.5-8.0); WBC 8.6 K/mcL (4.5-11.0)
[2021-06-20] MEDS ORDERED: DEXTROSE 50% 50 ML VIAL IV ONE (06:55)
[2021-06-20] MEDS ORDERED: FUROSEMIDE 100 MG/10 ML VIAL IV ONE (06:55)
[2021-06-20] MEDS ORDERED: INSULIN REGULAR, HUMAN 1 UNIT/0.01 ML UNIT IV ONE (06:55)
[2021-06-20] MEDS ORDERED: SODIUM POLYSTYRENE SULFONATE 15 GM/60 ML SUSPENSION PR ONE (06:56)
[2021-06-20] MEDS ORDERED: MAGNESIUM SULFATE 8.12 MEQ in DEXTROSE 5% IN WATER 50 ML IV ONE (07:03)
[2021-06-20] MEDS ORDERED: ALBUTEROL SULFATE 5 MG/ML NEB SOLUTION BOTTLE NEB ONE (07:16)
[2021-06-20] MEDS: DEXTROSE 50% 50 ML SYRINGE IV ONE ×2 (07:29→07:51)
[2021-06-20] MEDS ORDERED: ALBUTEROL SULFATE 2.5 MG/3 ML NEBULIZER NEB ONE (07:45)
[2021-06-20] MEDS ORDERED: DEXTROSE 50% 50 ML SYRINGE IV PRN (07:45)
[2021-06-20] MEDS ORDERED: DEXTROSE 50% 50 ML SYRINGE IV ONE (07:45)
--- NOTE | 2021-06-20 07:45 | EKG ---
[facility] Test Date: 2021-06-18 Pat Name: Deanne Alvarez Department: ED Room: Gender: Male Mobile Qa Tester: GARIMA : 1975 Requested By: Jonathon Gallegos Order Number: [id number] Reading MD: Marlon Carroll M.D. Measurements Intervals [place] Rate: 120 P: 54 WV: 133 QRS: 54 QRSD: 107 T: 57 QT: 318 QTc: 450 Interpretive Statements Sinus tachycardia Probable left atrial enlargement Baseline wander in lead(s) II,aVR,aVF,V2,V3,V4,V5,V6 Electronically Signed On 06-20-2021 7:44:41 PDT by Marlon Carroll M.D. [place] [place]/[id number]
--- NOTE | 2021-06-20 07:57 | EKG ---
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 Measurements Intervals [place] Rate: 102 P: 49 MD: 138 QRS: 61 QRSD: 95 T: 259 QT: 315 QTc: 411 Interpretive Statements Sinus tachycardia Inferoateral repolarization abnormality Borderline ST elevation, anterior leads Electronically Signed On 06-20-2021 7:57:19 PDT by Marlon Carroll M.D. /store/M0/[id number]
[2021-06-20] MEDS: FOLIC ACID 1 MG TABLET PO SCH (08:15)
--- NOTE | 2021-06-20 08:20 | XRay Report ---
HISTORY: Confirm nasogastric tube placement FINDINGS: There is an NG tube position in the antrum of the stomach pointing towards the pylorus. Stomach is decompressed. Normal amount of air is seen in the large intestine. No free intra-abdominal air is present. IMPRESSION: Well-positioned nasogastric tube Interpreted and Authenticated by: Lion Carroll 06/20/21
[2021-06-20] MEDS: FAMOTIDINE/PF 20 MG/2 ML VIAL IV SCH (08:48)
[2021-06-20] MEDS: THIAMINE 100 MG in 0.9 % SODIUM CHLORIDE 50 ML IV SCH (08:48)
[2021-06-20] MEDS ORDERED: LACTATED RINGERS 1,000 ML IV ONE (09:23)
[2021-06-20] MEDS ORDERED: NOREPINEPHRINE BITARTRATE 8 MG in 0.9 % SODIUM CHLORIDE 242 ML IV PRN (10:15)
[2021-06-20] MEDS ORDERED: 0.9 % SODIUM CHLORIDE 250 ML IV SCH (10:15)
[2021-06-20] MEDS: NICOTINE 14 MG PATCH TOPICAL SCH (10:46)
--- NOTE | 2021-06-20 10:54 | Discharge Summary ---
Discharge Provider Provider Patient information: Note initiated : 06/20/21 at 10:26 am Service Date, if different from initiated Date: [] Patient: Deanne Alvarez 45 y/o M admitted on 06/18/21 for abdominal pain. Chief Complaint: [] Date of admission: 06/18/21 20:39 Discharge date: 06/20/21 Primary care physician: PCP No Consults: 06/18/21 Consult to Physician [CONS] Stat Comment: Consulting Provider: Kalpesh Monroe Reason For Exam: Physician to Consult Discharge Meds Discharge Medications Home Medications No Known Home Meds 06/18/21 [History Confirmed 06/18/21 Last Taken Unknown] COURSE Hospital Course Hospital course: Mr. Alvarez is a 45 year old male with a history of alcohol use disorder, tobacco use disorder, treated chronic hepatitis C who presented to the emergency department with abdominal pain and distention and was found to have acute pancreatitis. CT abdomen pelvis as well as abdominal ultrasound were done in the ED, the ED provider received report from radiology that there was evidence of acute uncomplicated pancreatitis, there were no gallstones seen on imaging the common bile duct was 4 mm. The likely reason for the patient's acute pancreatitis is alcohol. In addition, the patient was experiencing alcohol withdrawal in the emergency department and received Ativan IV. Hospital medicine was consulted for admission. We discussed the plan of care in detail as well as CODE STATUS. All questions answered to best my ability. The patient wishes to be full code. 06/19 The patient continues to receive aggressive IV fluid hydration, lactic acid was 3.4 this morning therefore the patient received more IV fluid boluses in addition to continuing LR at 250 mL/h since admission. Repeating lactic acid decreased to 2.8. Tachycardia improving, patient has received about 7 L of IV fluid since admission. Unfortunately, the patient has developed an oliguric acute kidney injury. Suspect this is due to acute tubular necrosis secondary to prerenal physiology secondary to acute pancreatitis. The patient also received IV contrast for the CT scan when he presented to the ED and that can also be a cause of acute tubular necrosis. CIWA scores have been elevated, the patient was on a Precedex infusion briefly overnight however that was discontinued this morning. Continues to receive IV Ativan per CIWA score. LFTs are downtrending. Patient does have a oxygen requirement of 2 L/min today. Chest x-ray interpretation by radiology was improving minor bibasilar atelectasis. Since there is no explanation for the patient's hypoxia and the D-dimer was elevated, a CTA chest was ordered to evaluate for possible pulmonary embolism. Also ordered CT abdomen pelvis with the CTA chest. The CTA chest did not show pulmonary embolism however there was moderate consolidated infiltrate in the left lower lobe with moderate patchy right lower lobe infiltrate and smaller patchy infiltrates in the lingula, posterior segment left upper lobe and right middle lobe suspicious for aspiration pneumonia. There was moderate acute interstitial pancreatitis worsening since the exam on admission with greater volume of peripancreatic fluid extending to the lesser sac of the perigastric region along the pericolic gutters, no evidence of necrosis or other complication secondary to acute pancreatitis. There was also moderate gastric and esophageal dilation presumably related to gastroparesis or do abdominal paresis secondary to nearby abdominal inflammation from acute pancreatitis. The patient was started on broad-spectrum antibiotics with vancomycin, levofloxacin and metronidazole IV. MRSA nasal PCR ordered. A nasogastric tube was placed for low intermittent suction. A Gomez catheter was also placed. The patient developed increasing oxygen requirements, ABG showed a pH of 7.31, PCO2 41.4, PO2 56. The patient was started on BiPAP with an FiO2 of 60, pulse oximetry saturations increased to the mid to upper 90s on BiPAP. 06/20 The patient had high CIWA scores and severe agitation overnight, a Precedex infusion was started, continued to receive Ativan IV. Physical restraints were necessary as the patient was pulling on equipment and severely agitated. Renal function has worsened this morning, creatinine now 2.9 and potassium is now 6.2. Urine output overnight was 525 mL, the patient does have a Gomez catheter therefore this is an accurate urine output. EKG did not show changes secondary to hyperkalemia. Patient was started on albuterol nebs, D50 with regular insulin and IV, Lasix 80 mg IV once, Kayexalate per rectum. Following potassium and renal function closely, given the worsening renal failure and now hyperkalemia I anticipate the patient will need to transfer to a higher level of care as this facility does not have acute dialysis capability. Continues on IV fluid, lactic acid this morning was 3.2 so another bolus of lactated Ringer's given. The patient has received approximately 10 L of IV fluid since admission however much of it has been third spaced into his abdominal space because of acute pancreatitis Continues on BiPAP with an FiO2 of 60. Patient has become increasingly agitated and confused, probably in delirium tremens. Weaned off Precedex infusion due to low blood pressure and started Levophed to maintain maps greater than 65 as well as giving additional IV fluid. This hypotension may be secondary to Lasix was given for severe hyperkalemia. The patient did have increased urine output after receiving Lasix IV. Awaiting repeat potassium check and lactic acid. Discussed transfer to intensive care unit at [facility] as well as [facility] has an intensive care unit bed available. The patient was accepted by critical care to the medical intensive care unit at [facility]. Physical exam Head: Atraumatic, normal inspection. Eyes: normal appearance, no scleral icterus. Neck: full ROM Respiratory: BiPAP, respiratory rate in the 30s, accessory muscle use. Cardiovascular: Regular tachycardia, S1, S2. GI/Abdominal: Abdominal distended, diffuse abdominal tenderness to palpation. Musculoskeletal: In wrist restraints, 1+ bilateral lower extremity pitting edema. Neurological: CN II-XII intact, intact motor, intact sensation. Psychiatric: Severely agitated. Skin: warm, normal color Discharge diagnosis: Severe acute alcoholic pancreatitis Secondary discharge diagnosis: Acute renal failure Hyperkalemia Acute hypoxic respiratory failure Aspiration pneumonia Alcohol withdrawal Time Spent with Patient Time attestation: Total time spent providing and/or coordinating discharge services: EXAM Constitutional Vitals: Temp Pulse Resp BP Pulse Ox 97.8 F 112 H 30 H 96/58 92 06/20/21 08:02 06/20/21 10:04 06/20/21 10:04 06/20/21 08:02 06/20/21 10:04 Discharge Data Data Completed and Pending Labs on day of discharge: Labs from last 24 hours 06/20/21 06/20/21 06/20/21 10:04 08:23 08:23 WBC RBC Hgb Hct MCV MCH MCHC RDW Plt Count MPV Neut % (Auto) Lymph % (Auto) Ware % (Auto) Eos % (Auto) Baso % (Auto) Lymph # (Auto) Ware # (Auto) Eos # (Auto) Baso # (Auto) Absolute Neutrophils Differential Comment D-Dimer POC pH POC pCO2 POC pO2 POC HCO3 POC Total CO2 POC ABG Base Excess VBG Lactic Acid 3.2 H Hgb O2 Saturation Sodium Pending Potassium Pending Chloride Pending Carbon Dioxide Pending Anion Gap Pending BUN Pending Creatinine Pending GFR Calculation Pending Glucose Pending Hemoglobin A1c Estim Average Glucose POC Arterial Lactate Uric Acid Calcium Pending Phosphorus Pending Magnesium Pending Total Bilirubin Direct Bilirubin GGT AST ALT Alkaline Phosphatase Lactate Dehydrogenase Troponin T < 0.01 NT-Pro-B Natriuret Pep Total Protein Albumin Pending Globulin Albumin/Globulin Ratio Triglycerides Procalcitonin Urine Color Urine Appearance Urine pH Ur Specific [place] Urine Protein Urine Glucose (UA) Urine Ketones Urine Occult Blood Urine Nitrate Urine Bilirubin Urine Urobilinogen Ur Leukocyte Esterase Urine RBC Urine WBC Ur Squamous Epith Cells Urine Bacteria Hyaline Casts Urine Mucus Ur Culture Indicated? 06/20/21 06/20/21 06/19/21 05:12 05:12 17:19 WBC 8.6 RBC 4.74 Hgb 15.2 Hct 45.7 MCV 96.4 MCH 32.1 MCHC 33.3 RDW 12.5 Plt Count 171 MPV 10.9 H Neut % (Auto) 79.2 H Lymph % (Auto) 8.7 L Ware % (Auto) 11.0 Eos % (Auto) 0.9 Baso % (Auto) 0.2 Lymph # (Auto) 0.75 L Ware # (Auto) 0.95 H Eos # (Auto) 0.08 Baso # (Auto) 0.02 Absolute Neutrophils 6.84 Differential Comment D-Dimer 4.60 H POC pH POC pCO2 POC pO2 POC HCO3 POC Total CO2 POC ABG Base Excess VBG Lactic Acid Hgb O2 Saturation Sodium 130 L Potassium 6.2 H* Chloride 98 Carbon Dioxide 20 L Anion Gap 12.0 BUN 34 H Creatinine 2.9 H GFR Calculation 25 Glucose 212 H Hemoglobin A1c Estim Average Glucose POC Arterial Lactate Uric Acid 5.7 Calcium 8.1 L Phosphorus 4.7 H Magnesium 1.4 L Total Bilirubin 1.4 H Direct Bilirubin 0.8 H GGT 223 H AST 83 H ALT 37 Alkaline Phosphatase 66 Lactate Dehydrogenase 623 H Troponin T NT-Pro-B Natriuret Pep Total Protein 5.1 L Albumin 2.0 L Globulin 3.1 Albumin/Globulin Ratio 0.6 L Triglycerides 317 H Procalcitonin Urine Color Urine Appearance Urine pH Ur Specific [place] Urine Protein Urine Glucose (UA) Urine Ketones Urine Occult Blood Urine Nitrate Urine Bilirubin Urine Urobilinogen Ur Leukocyte Esterase Urine RBC Urine WBC Ur Squamous Epith Cells Urine Bacteria Hyaline Casts Urine Mucus Ur Culture Indicated? 06/19/21 06/19/21 06/19/21 17:19 16:10 15:51 WBC RBC Hgb Hct MCV MCH MCHC RDW Plt Count MPV Neut % (Auto) Lymph % (Auto) Ware % (Auto) Eos % (Auto) Baso % (Auto) Lymph # (Auto) Ware # (Auto) Eos # (Auto) Baso # (Auto) Absolute Neutrophils Differential Comment D-Dimer POC pH 7.31 L POC pCO2 41.4 POC pO2 56 L POC HCO3 20.7 L POC Total CO2 22.0 L POC ABG Base Excess -6.0 L VBG Lactic Acid Hgb O2 Saturation 86.0 L Sodium Potassium Chloride Carbon Dioxide Anion Gap BUN Creatinine GFR Calculation Glucose Hemoglobin A1c Estim Average Glucose POC Arterial Lactate 2.7 H Uric Acid Calcium Phosphorus Magnesium Total Bilirubin Direct Bilirubin GGT AST ALT Alkaline Phosphatase Lactate Dehydrogenase Troponin T NT-Pro-B Natriuret Pep 404.2 H Total Protein Albumin Globulin Albumin/Globulin Ratio Triglycerides Procalcitonin Urine Color [place] Urine Appearance Cloudy A Urine pH 5.0 Ur Specific [place] 1.009 Urine Protein Negative Urine Glucose (UA) Negative Urine Ketones Negative Urine Occult Blood 0.03 Urine Nitrate Negative Urine Bilirubin Negative Urine Urobilinogen Negative Ur Leukocyte Esterase Negative Urine RBC < 1 Urine WBC 1 Ur Squamous Epith Cells < 1 Urine Bacteria None Hyaline Casts 4 H Urine Mucus Few A Ur Culture Indicated? No 06/19/21 06/19/21 06/19/21 11:35 11:35 09:15 WBC RBC Hgb Hct MCV MCH MCHC RDW Plt Count MPV Neut % (Auto) Lymph % (Auto) Ware % (Auto) Eos % (Auto) Baso % (Auto) Lymph # (Auto) Ware # (Auto) Eos # (Auto) Baso # (Auto) Absolute Neutrophils Differential Comment D-Dimer POC pH POC pCO2 POC pO2 POC HCO3 POC Total CO2 POC ABG Base Excess VBG Lactic Acid 2.8 H Hgb O2 Saturation Sodium 126 L Potassium 4.7 Chloride 94 L Carbon Dioxide 20 L Anion Gap 12.0 BUN 22 H Creatinine 2.2 H GFR Calculation 35 Glucose 201 H Hemoglobin A1c 6.8 H Estim Average Glucose 148 POC Arterial Lactate Uric Acid Calcium 8.8 Phosphorus 5.2 H Magnesium Total Bilirubin Direct Bilirubin GGT AST ALT Alkaline Phosphatase Lactate Dehydrogenase Troponin T NT-Pro-B Natriuret Pep Total Protein Albumin 2.7 L Globulin Albumin/Globulin Ratio Triglycerides Procalcitonin Urine Color Urine Appearance Urine pH Ur Specific [place] Urine Protein Urine Glucose (UA) Urine Ketones Urine Occult Blood Urine Nitrate Urine Bilirubin Urine Urobilinogen Ur Leukocyte Esterase Urine RBC Urine WBC Ur Squamous Epith Cells Urine Bacteria Hyaline Casts Urine Mucus Ur Culture Indicated? 06/19/21 05:30 WBC RBC Hgb Hct MCV MCH MCHC RDW Plt Count MPV Neut % (Auto) Lymph % (Auto) Ware % (Auto) Eos % (Auto) Baso % (Auto) Lymph # (Auto) Ware # (Auto) Eos # (Auto) Baso # (Auto) Absolute Neutrophils Differential Comment D-Dimer POC pH POC pCO2 POC pO2 POC HCO3 POC Total CO2 POC ABG Base Excess VBG Lactic Acid Hgb O2 Saturation Sodium Potassium Chloride Carbon Dioxide Anion Gap BUN Creatinine GFR Calculation Glucose Hemoglobin A1c Estim Average Glucose POC Arterial Lactate Uric Acid Calcium Phosphorus Magnesium Total Bilirubin Direct Bilirubin GGT AST ALT Alkaline Phosphatase Lactate Dehydrogenase Troponin T NT-Pro-B Natriuret Pep Total Protein Albumin Globulin Albumin/Globulin Ratio Triglycerides Procalcitonin 0.34 H Urine Color Urine Appearance Urine pH Ur Specific [place] Urine Protein Urine Glucose (UA) Urine Ketones Urine Occult Blood Urine Nitrate Urine Bilirubin Urine Urobilinogen Ur Leukocyte Esterase Urine RBC Urine WBC Ur Squamous Epith Cells Urine Bacteria Hyaline Casts Urine Mucus Ur Culture Indicated? Preliminary micro results at discharge 06/19/21 16:25 Gram Stain - Preliminary Sputum source - Expectorated 06/19/21 09:15 Blood Culture - Preliminary Blood 06/19/21 08:06 Blood Culture - Preliminary Blood Discharge Plan Patient/Caregiver Discharge Instructions Activity: other Diet: NPO Prescriptions: No Action No Known Home Meds 0RF Follow Up Plan Follow up with: No,PCP [Primary Care Provider] - Patient Disposition: [facility] Overall status at discharge: patient is not back to baseline Discharge Orders: Discharge Order (Routine); Ordered 06/20/21 Ordered By: Kalpesh Monroe
[2021-06-20 11:11] LABS: Albumin 2.1 gm/dL (3.2-5.2); Calcium 8.4 mg/dL (8.6-10.4); Phosphorous 5.1 mg/dL (2.5-4.5)
[2021-06-20] MEDS ORDERED: ROCURONIUM 10 MG/ML ML IV ONE (12:28)
--- NOTE | 2021-06-20 12:41 | XRay Report ---
HISTORY: Intubated FINDINGS: The endotracheal tube is well-positioned, 2.5 cm above the josie. There is no widening of the mediastinum or pneumothorax. Lung volumes are small. There is moderate atelectasis in both lung bases. Heart size is grossly normal. Comparison with the prior chest CT performed on 06/19/21 shows the atelectasis has become worse. There is nasogastric tube passing through the esophagus into the distal stomach. IMPRESSION: Well-positioned endotracheal tube. Worsening atelectasis in both lungs Interpreted and Authenticated by: Lion Carroll 06/20/21
[2021-06-21] MEDS ORDERED: cefTRIAXone 2 GM in DEXTROSE 5% IN WATER 50 ML IV SCH (09:00)
== END 2021-06-20 12:20 | disposition short-term general hospital (02) | DRG 438 ==
LOC: ED 16:15 → ICU 20:39
PROVIDERS: ADMIT Internal Medicine; ATTEND Internal Medicine